=== PATIENT | female | born 1985 | race Two or more races ===

== ENCOUNTER 2021-04-07 12:36 | Emergency (ER) | payer MEDICAID, OTHER ==
[~2021-04-07] VITALS: Ht 165.1 cm; Wt 90.7 kg
[2021-04-07 15:31] VITALS: BP 130/93
== END 2021-04-07 15:43 | disposition home or self-care (01) ==
LOC: ER 12:36
DX: F41.8 Other specified anxiety disorders (principal)

== ENCOUNTER 2023-10-15 22:55 | Emergency (ER) | payer MEDICAID, OTHER ==
[~2023-10-15] VITALS: Ht 165.1 cm; Wt 89.0 kg
[2023-10-15 22:55] VITALS: BP 112/64; PULSE 87; RESP 24; O2SAT 99
[2023-10-16] MEDS ORDERED: ACE3T PO (00:04)
[2023-10-16] MEDS: ACETAMINOPHEN/CODEINE#3 (300/30mg) TAB PO ONE (00:07)
[2023-10-16] MEDS: ONDANSETRON ODT 4 MG TAB PO ONE (00:07)
== END 2023-10-16 00:13 | disposition home or self-care (01) ==
LOC: ER 22:55
DX: G43.909 Migraine, unspecified, not intractable, without status migrainosus (principal)
CPT/HCPCS: 99283; Q0162

== ENCOUNTER 2024-03-23 18:43 | Emergency (ER) | payer OTHER ==
[~2024-03-23 18:43] MED LIST: ACE3T PO
== END 2024-03-23 19:44 | disposition left against medical advice (07) ==
LOC: ER 18:43
DX: H92.01 Otalgia, right ear (principal); Z53.21 Procedure and treatment not carried out due to patient leaving prior to being seen by health care provider